=== PATIENT | male | born 1975 | race African-American/Black ===

== ENCOUNTER 2018-09-24 06:25 | Emergency (ER) | payer SELFPAY ==
--- NOTE | 2018-09-24 08:58 | ER Document Report ---
ED General - General Chief Complaint: Ear Pain Stated Complaint: LEFT EAR PAIN Time Seen by Provider: 09/24/18 08:47 Primary Care Provider: TRACY DAMICO MD [COMMUNITY BASED STAFF] - Follow up in 3-5 days Notes: Patient is a 43-year-old male that presents to the emergency department for chief complaint of left ear pain and sore throat. Patient reports he started having pain in his left ear on 2 or 3:00 yesterday afternoon, has not noticed any drainage, he has had some painful swallowing and sore throat as well. He did not take any Tylenol or Motrin to see if it would help. He denies any any fevers, chills, night sweats, nausea, vomiting, chest pain or shortness of breath or cough. No sick contacts that he is aware of. He currently rates his pain as a 4 out of 10 is a constant ache in his left ear. Past Medical History: Denies chronic medical conditions Past Surgical History: Denies surgical history Social History: Admits to smoking cigarettes daily, denies alcohol or drug use. Family History: Reviewed and noncontributory for presenting illness Allergies: Reviewed, see documented allergy list. REVIEW OF SYSTEMS: Other than noted above, the 12 point review of systems was reviewed with the patient and were negative, all pertinent findings are included in the HPI. PHYSICAL EXAMINATION: Vital signs reviewed, nursing noted reviewed. GENERAL: Well-appearing, well-nourished and in no acute distress. HEAD: Atraumatic, normocephalic. EYES: Eyes appear normal, extraocular movements intact, sclera anicteric, conjunctiva are normal. ENT: nares patent, Moist mucous membranes. The left TM appears erythematous and bulging, external auditory canals unremarkable, right TM appears normal, the posterior oropharynx is erythematous, with trace exudates as well on the left in particular NECK: Normal range of motion, supple without lymphadenopathy LUNGS: Breath sounds clear to auscultation bilaterally and equal. No wheezes rales or rhonchi. HEART: Regular rate and rhythm without murmurs ABDOMEN: Soft, nontender, normoactive bowel sounds. No rebound, guarding, or rigidity. No masses appreciated. EXTREMITIES: Nontender, good range of motion, no pitting or edema. NEUROLOGICAL: No focal neurological deficits. Moves all extremities spontaneously Motor and sensory grossly intact on exam. PSYCH: Normal mood, normal affect. SKIN: Warm, Dry, normal turgor, no rashes or lesions noted on exposed skin TRAVEL OUTSIDE OF THE [place] IN LAST 30 DAYS: No Past Medical History - Social History Smoking Status: Current Every Day Smoker Chew tobacco use (# tins/day): No Frequency of alcohol use: Occasional Drug Abuse: None Family History: Reviewed & Not Pertinent Patient has suicidal ideation: No Patient has homicidal ideation: No Renal/ Medical History: Denies: Hx Peritoneal Dialysis Physical Exam - Vital signs Vitals: Temp Pulse Resp BP Pulse Ox 99.7 F 108 H 20 178/102 H 100 09/24/18 06:33 09/24/18 06:33 09/24/18 06:33 09/24/18 06:33 09/24/18 06:33 Course - Re-evaluation Re-evalutation: Patient seen and examined vital signs reviewed. Patient was evaluated and treated as appropriate for the patient's presenting symptoms and complaint, with consideration of any critical or life threatening conditions that may be associated with their obtained history and exam as noted above. Evaluation was most consistent with acute otitis media, acute pharyngitis, will treat the patient for his otitis media, with amoxicillin, twice daily, for 10 days, advised [id number] Motrin otherwise to take for pain while treating the infection. Plan of care was discussed with the patient at this point, after careful consideration I feel that that patient can be discharged from the emergency department, the patient was educated treatments and reasons to return to the emergency department based on their presumed diagnosis as noted above, they were advised to followup with a primary care physician in 2-3 days. Patient was agreeable to plan of care. *Note is created using voice recognition software and may contain spelling, syntax or grammatical errors. - Vital Signs Vital signs: Temp Pulse Resp BP Pulse Ox 99.6 F 104 H 17 184/109 H 100 09/24/18 09:10 09/24/18 09:10 09/24/18 09:10 09/24/18 09:10 09/24/18 09:10 Discharge - Discharge Clinical Impression: Acute otitis media Qualifiers: Otitis media type: suppurative Laterality: left Recurrence: not specified as recurrent Spontaneous tympanic membrane rupture: without spontaneous rupture Qualified Code(s): H66.002 - Acute suppurative otitis media without spontaneous rupture of ear drum, left ear Acute pharyngitis Qualifiers: Pharyngitis/tonsillitis etiology: unspecified etiology Qualified Code(s): J02.9 - Acute pharyngitis, unspecified Condition: Stable Disposition: HOME, SELF-CARE Instructions: Otitis Media ([facility]), Sore Throat ([facility]) Additional Instructions: Please complete the entire course of antibiotics, you can otherwise take [id number] ibuprofen, up to 600 mg every 8 hours if needed for pain. Prescriptions: RX: Amoxicillin Trihydrate [Amoxil 875 mg Tablet] 1 tab PO BID #20 tablet Forms: Return to Work Referrals: TRACY DAMICO MD [COMMUNITY BASED STAFF] - Follow up in 3-5 days
[2018-09-24 09:13] VITALS: BP 184/109
== END 2018-09-24 09:13 | disposition home or self-care (01) ==
LOC: ER 06:25
DX: H66.002 Acute suppurative otitis media without spontaneous rupture of ear drum, left ear (principal); J02.9 Acute pharyngitis, unspecified; F17.210 Nicotine dependence, cigarettes, uncomplicated
CPT/HCPCS: 99282

== ENCOUNTER 2019-07-16 01:43 | Inpatient (IN) | payer OTHER ==
[2019-07-16 03:15] LABS: ABSOLUTE LYMPHOCYTES (AUTO) 1.1 10^3/uL (0.5-4.7); ABSOLUTE MONOCYTES (AUTO) 0.3 10^3/uL (0.1-1.4); ABSOLUTE NEUT (AUTO) 5.2 10^3/uL (1.7-8.2); BASOPHILS % (AUTO) 0.3 % (0-2); HEMATOCRIT 44.5 % (37.9-51.0); HEMOGLOBIN 15.3 g/dL (13.5-17.0); LYMPHOCYTES % (AUTO) 16.4 % (13-45); MEAN CORPUSCULAR HGB CONC 34.3 g/dL (32.0-36.0); MEAN CORPUSCULAR VOLUME 82 fl (80-97); MONOCYTES % (AUTO) 3.8 % (3-13); PLATELET COUNT 287 10^3/uL (150-450); RED BLOOD COUNT 5.46 10^6/uL (4.35-5.55); RED CELL DISTRIBUTION WIDTH 13.6 % (11.5-14.0); SEGMENTED NEUTROPHILS % (AUTO) 79.5 % (42-78); TOTAL CELLS COUNTED % (AUTO) 100 %; WHITE BLOOD COUNT 6.5 10^3/uL (4.0-10.5)
[2019-07-16 03:19] LABS: APPEARANCE,URINE CLEAR; BILIRUBIN,URINE NEGATIVE (NEGATIVE); COLOR,URINE YELLOW; GLUCOSE, URINE NEGATIVE (NEGATIVE); KETONES,URINE TRACE mg/dL (NEGATIVE); LEUKOCYTE ESTERASE,URINE NEGATIVE (NEGATIVE); NITRITE,URINE NEGATIVE (NEGATIVE); PROTEIN,URINE 30 mg/dL (NEGATIVE); URINE SPECIFIC GRAVITY 1.031; UROBILINOGEN,URINE NEGATIVE mg/dL (<2.0)
[2019-07-16 03:33] LABS: ALBUMIN 4.7 g/dL (3.5-5.0); ALKALINE PHOSPHATASE 92 U/L (38-126); ANION GAP 9 (5-19); ASPARTATE AMINO TRANSFERASE 28 U/L (17-59); BILIRUBIN,TOTAL 0.6 mg/dL (0.2-1.3); BLOOD UREA NITROGEN 13 mg/dL (7-20); CALCIUM 9.8 mg/dL (8.4-10.2); CARBON DIOXIDE 24 mmol/L (22-30); CHLORIDE 102 mmol/L (98-107); GLUCOSE 135 mg/dL (75-110); POTASSIUM 4.7 mmol/L (3.6-5.0); TOTAL PROTEIN 7.9 g/dL (6.3-8.2)
[2019-07-16] MEDS ORDERED: KETOROLAC TROMETHAMINE INJ/PF 30 MG/1 ML SDV IV ONE (04:13)
--- NOTE | 2019-07-16 05:12 | ER Document Report ---
ED General - General TRAVEL OUTSIDE OF THE [place] IN LAST 30 DAYS: No - Related Data Home Medications: no bp meds since january2019 <ALMAGUERFLORI A - Last Filed: 07/16/19 06:36> <MARKOSMASONELIZA - Last Filed: 07/16/19 07:30> - General Chief Complaint: Abdominal Pain Stated Complaint: ABDOMINAL PAIN Time Seen by Provider: 07/16/19 03:13 - HPI Notes: 43-year-old male no significant medical history presents with approximately 12 hours of gradual onset constant periumbilical abdominal pain without associated symptoms, prior episodes, aggravating or alleviating factors. Patient took Tums for pain which did not improve. Patient denies fever chills, nausea vomiting, diarrhea constipation, migration of pain, dysuria frequency flank pain, penile discharge rashes or lesions, testicular pain, prior abdominal surgery, trauma, dizziness, syncope, drug use, alcohol use, prior medical evaluation, chest pain, cardiac history, cardiac risk factors. (FLORI ALMAGUER) - Related Data Allergies/Adverse Reactions: No Known Allergies Allergy (Verified 07/16/19 01:57) Past Medical History - Social History Smoking Status: Current Every Day Smoker Family History: Reviewed & Not Pertinent Patient has suicidal ideation: No Patient has homicidal ideation: No Neurological Medical History: Reports: None Endocrine Medical History: Reports: None Renal/ Medical History: Reports: None. Denies: Hx Peritoneal Dialysis <ALMAGUERFLORI A - Last Filed: 07/16/19 06:36> Review of Systems <FLORI ALMAGUER - Last Filed: 07/16/19 06:36> - Review of Systems Notes: REVIEW OF SYSTEMS: CONSTITUTIONAL : Denies fever, chills, or sweats. EENT: Denies recent cold/sinus symptoms, denies throat pain CARDIOVASCULAR: Denies chest pain, JOSUE RESPIRATORY: Denies cough, denies shortness of breath. GASTROINTESTINAL: Endorses abdominal pain, nausea/vomiting. GENITOURINARY: Denies difficulty urinating, painful urination, and urinary frequency. MUSCULOSKELETAL: Denies neck pain, back pain. SKIN: Denies rash or skin lesions. HEMATOLOGIC : Denies easy bruising or bleeding. LYMPHATIC: Denies swollen, enlarged glands. NEUROLOGICAL: Denies headache, denies change in gait. PSYCHIATRIC: Denies anxiety or stress or depression. (FLORI ALMAGUER) Physical Exam <FLORI ALMAGUER - Last Filed: 07/16/19 06:36> - Vital signs Vitals: Temp Pulse Resp BP Pulse Ox 97.9 F 86 15 172/109 H 100 07/16/19 01:51 07/16/19 01:51 07/16/19 01:51 07/16/19 01:51 07/16/19 01:51 - Notes Notes: PHYSICAL EXAMINATION: GENERAL: Well-appearing, well-nourished and in no acute distress. HEAD: Atraumatic, normocephalic. EYES: Pupils equal round and appropriate constriction, sclera anicteric, conjunctiva are normal. ENT: nares patent, moist mucous membranes. NECK: Normal range of motion, supple without lymphadenopathy LUNGS: Breath sounds clear to auscultation bilaterally and equal. No wheezes rales or rhonchi. HEART: Regular rate and rhythm without murmurs ABDOMEN: Soft, +RLQ tenderness, no guarding, no masses, normoactive bowel sounds, no CVAT, no prior surgical scars EXTREMITIES: Normal range of motion, no pitting or edema. No cyanosis. NEUROLOGICAL: Awake, alert, conversing appropriately, moves all extremities spontaneously. PSYCH: Normal mood, normal affect. SKIN: Warm, Dry, normal turgor, no rashes or lesions noted. (FLORI ALMAGUER) Course - Laboratory Result Diagrams: 07/16/19 03:01 07/16/19 03:01 <FLORI ALMAGUER - Last Filed: 07/16/19 06:36> - Laboratory Result Diagrams: 07/16/19 03:01 07/16/19 03:01 <ELIZA MARTIN - Last Filed: 07/16/19 07:30> - Re-evaluation Re-evalutation: 07/16/19 05:27 Patient very well-appearing, positive right lower quadrant tenderness without signs of an acute surgical abdomen. Will obtain CT abdomen pelvis with IV contrast given patient's BMI to rule out appendicitis--unlikely renal colic, unlikely diverticulitis but will evaluate on CT. Patient stable pending imaging, pain control, and reevaluation. 07/16/19 06:36 Patient continues to be stable, exam unchanged. CT shows moderate grade SBO, concerning for possible underlying malignancy or internal hernia given patient's lack of prior abdominal surgery. Informed patient of finding and of need to be admitted to hospital which she is in agreement with. Called Dr. Hernandez and discussed patient with him, Dr. Hernandez says he will come see patient. Will sign patient out to Dr. gamino pending disposition. Ordered Zofran and morphine given patient continuing to have pain and possible nausea from NG tube which was also ordered. (FLORI ALMAGUER) 07/16/19 07:28 Dr. Hernandez, surgical list on-call, has come and evaluated the patient. He is unsure as to whether or not this is a true bowel obstruction, but agrees that observation is appropriate at this time. He will admit the patient for further care. (ELIZA MARTIN) - Vital Signs Vital signs: Temp Pulse Resp BP Pulse Ox 97.9 F 86 15 172/109 H 100 07/16/19 01:51 07/16/19 01:51 07/16/19 01:51 07/16/19 01:51 07/16/19 01:51 - Laboratory Laboratory results interpreted by me: 07/16/19 07/16/19 07/16/19 03:01 03:01 03:01 Seg Neutrophils % 79.5 H Sodium 134.8 L Glucose 135 H Lipase 16.2 L Urine Protein 30 H Urine Ketones TRACE H Urine Ascorbic Acid 20 H Discharge <FLORI ALMAGUER - Last Filed: 07/16/19 06:36> - Discharge Admitting Provider: Surgicalist - Dr. Hernandez Unit Admitted: Surgical Floor <ELIZA MARTIN - Last Filed: 07/16/19 07:30> - Discharge Clinical Impression: Abdominal pain Qualifiers: Abdominal location: periumbilical Qualified Code(s): R10.33 - Periumbilical pain Condition: Stable Disposition: ADMITTED OBSERVATION
--- NOTE | 2019-07-16 06:15 | RADIOLOGY REPORT (SQ) ---
EXAM DESCRIPTION: CT ABDOMEN PELVIS WITH IV CONTRAST COMPLETED DATE/TME: 07/16/2019 04:12 CLINICAL HISTORY: 43 years Male, RLQ pain Comparison: None. Technique: IV contrast. Coronal and sagittal reformat. This exam was performed according to our departmental dose-optimization program, which includes automated exposure control, adjustment of the mA and/or kV according to patient size and/or use of iterative reconstruction technique. [facility]: Dose Right [facility]: CareDose [facility]: Dose Right [facility]: Teradose 4D [facility]: [email or web address] LIMITATIONS: None Findings: Numerous stacked loops of 4.1 cm diameter small bowel indicative of moderate grade obstruction. Focal transition at the mid abdomen, image 57, series 3. Immediate Surgical referral advised. Moderate L5-S1 disc bulge. Ezer-me-uosfrlkb L5-S1 and L4-L5 spinal and bilateral L5 foraminal stenoses. Minimal pelvic cul-de-sac fluid. No pneumoperitoneum. Normal appendix. No gross evidence of gallbladder inflammation, hepatobiliary obstruction, or portal vein defect. No hydronephrosis or hydroureter. No renal/ureteral stone. No evidence of abdominal aortic aneurysm. Inferior thorax, liver, gallbladder, pancreas, spleen, adrenals, renal system, gastrointestinal tract, pelvic organs, lymphatics, vasculature, and musculoskeleton appear otherwise unremarkable. IMPRESSION: Moderate grade small bowel obstruction. Focal transition at the mid abdomen, image 57, series 3. Immediate Surgical referral advised.
[2019-07-16] MEDS ORDERED: RINGERS SOLUTION,LACTATED 1,000 ML IV PRN (06:19)
[2019-07-16] MEDS ORDERED: LIDOCAINE 2% INJ-PF (20 MG/ML) 10 ML AMPUL NEB ONE (06:26)
[2019-07-16] MEDS ORDERED: ONDANSETRON HCL INJ/PF 4 MG/2 ML SDV IV ONE (06:35)
[2019-07-16] MEDS ORDERED: MORPHINE SULFATE 10 MG/ML INJ IV STA (06:35)
[2019-07-16] MEDS ORDERED: PROMETHAZINE HCL INJ 25 MG/1 ML VIAL IV ONE (07:12)
[2019-07-16] MEDS ORDERED: PROMETHAZINE HCL INJ 25 MG/1 ML VIAL ONE (07:13)
[2019-07-16] MEDS ORDERED: ONDANSETRON HCL INJ/PF 4 MG/2 ML SDV IV PRN (07:35)
[2019-07-16] MEDS: ERYTHROMYCIN BASE 250 MG TABLET PO SCH ×3 (10:00→18:27)
[2019-07-16] MEDS: FAMOTIDINE INJ/PF 20 MG/2 ML SDV IV SCH ×2 (10:00→18:00)
[2019-07-16] MEDS: DEXTROSE 5%-LACTATED RINGERS 1,000 ML IV PRN ×2 (15:00→23:48)
[2019-07-16] MEDS: ENALAPRILAT DIHYDRATE INJ/PF 1.25 MG/1 ML SDV IV SCH ×2 (18:00→23:48)
[2019-07-16] MEDS: HYDRALAZINE HCL INJ/PF 20 MG/1 ML SDV IV PRN (20:10)
[2019-07-17] MEDS: KETOROLAC TROMETHAMINE INJ/PF 30 MG/1 ML SDV IV PRN ×3 (01:40→18:00)
[2019-07-17] MEDS: ENALAPRILAT DIHYDRATE INJ/PF 1.25 MG/1 ML SDV IV SCH ×3 (05:49→18:26)
[2019-07-17 06:03] LABS: ABSOLUTE LYMPHOCYTES (AUTO) 1.3 10^3/uL (0.5-4.7); ABSOLUTE MONOCYTES (AUTO) 0.4 10^3/uL (0.1-1.4); ABSOLUTE NEUT (AUTO) 2.2 10^3/uL (1.7-8.2); BASOPHILS % (AUTO) 0.5 % (0-2); EOSINOPHILS % (AUTO) 0.1 % (0-6); HEMOGLOBIN 14.5 g/dL (13.5-17.0); LYMPHOCYTES % (AUTO) 33.2 % (13-45); MEAN CORPUSCULAR HEMOGLOBIN 27.9 pg (27.0-33.4); MEAN CORPUSCULAR HGB CONC 34.4 g/dL (32.0-36.0); MEAN CORPUSCULAR VOLUME 81 fl (80-97); MONOCYTES % (AUTO) 10.9 % (3-13); PLATELET COUNT 252 10^3/uL (150-450); RED BLOOD COUNT 5.18 10^6/uL (4.35-5.55); RED CELL DISTRIBUTION WIDTH 13.8 % (11.5-14.0); SEGMENTED NEUTROPHILS % (AUTO) 55.3 % (42-78); TOTAL CELLS COUNTED % (AUTO) 100 %
[2019-07-17 06:27] LABS: ANION GAP 5 (5-19); BLOOD UREA NITROGEN 12 mg/dL (7-20); CALCIUM 8.9 mg/dL (8.4-10.2); CARBON DIOXIDE 29 mmol/L (22-30); CHLORIDE 101 mmol/L (98-107); GLUCOSE 125 mg/dL (75-110); POTASSIUM 4.1 mmol/L (3.6-5.0)
[2019-07-17] MEDS: DEXTROSE 5%-LACTATED RINGERS 1,000 ML IV PRN (06:31)
--- NOTE | 2019-07-17 07:25 | PDOC H&P ---
History of Present Illness Admission Date/PCP: 07/16/19 07:44 Patient complains of: Burning abdominal pain, nausea History of Present Illness: TEJ AMARAL is a 43 year old male who awoke in the middle of the night with burning abdominal pain. The pain did not go away, and he presented to the emergency room for evaluation. The patient reports nausea without vomiting. His abdominal pain is 8 out of 10. It is located all across his abdomen, without a specific point of tenderness. Nothing makes it better or worse. He denies melena, hematochezia, diarrhea, constipation. His last bowel movement was yesterday. He passed flatus before presenting to the emergency department. The patient denies chest pain, shortness of breath, fevers, chills, dizziness, blurry vision, orthostasis, fatigue, malaise, headache. Past Medical History Cardiac Medical History: Reports: Hypertension Neurological Medical History: Reports: None Endocrine Medical History: Reports: None Renal/ Medical History: Reports: None Psychiatric Medical History: Denies: Depression Social History Smoking Status: Current Every Day Smoker Cigars Per Day: 8 Number of Years Smokin Last Time Smoked: 07/15/2019 Frequency of Alcohol Use: Occasional Hx Prescription Drug Abuse: No Family History Family History: Reviewed & Not Pertinent Parental Family History Reviewed: Yes Children Family History Reviewed: Yes Sibling(s) Family History Reviewed.: Yes Medication/Allergy Home Medications: No Home Medications 07/16/19 Allergies/Adverse Reactions: No Known Allergies Allergy (Verified 07/16/19 01:57) Review of Systems Constitutional: ABSENT: anorexia, chills, fatigue, fever(s) Eyes: ABSENT: visual disturbances Ears: ABSENT: hearing changes Nose, Mouth, and Throat: ABSENT: mouth pain, sore throat Cardiovascular: ABSENT: chest pain Respiratory: ABSENT: cough, dyspnea Gastrointestinal: PRESENT: abdominal pain, nausea. ABSENT: hematemesis, hematochezia, melena, vomiting Genitourinary: ABSENT: dysuria Musculoskeletal: ABSENT: back pain Integumentary: ABSENT: pruritus, rash Neurological: ABSENT: confusion, convulsions, dizziness Psychiatric: ABSENT: anxiety, depression Endocrine: ABSENT: cold intolerance, heat intolerance Hematologic/Lymphatic: ABSENT: easy bleeding, easy bruising Physical Exam Vital Signs: Temp Pulse Resp BP Pulse Ox 98.2 F 78 16 174/78 H 100 07/16/19 15:55 07/16/19 18:00 07/16/19 15:55 07/16/19 18:00 07/16/19 15:55 Intake & Output 07/15/19 07/16/19 07/17/19 06:59 06:59 06:59 Intake Total 1440 Balance 1440 Weight 77.4 kg 78 kg General appearance: PRESENT: no acute distress Head exam: PRESENT: atraumatic, normocephalic Eye exam: PRESENT: EOMI, PERRLA. ABSENT: scleral icterus Mouth exam: PRESENT: moist, neck supple Neck exam: ABSENT: meningismus, tenderness, thyromegaly, tracheal deviation Respiratory exam: PRESENT: unlabored. ABSENT: chest wall tenderness, tachypnea Cardiovascular exam: ABSENT: tachycardia Pulses: PRESENT: normal radial pulses GI/Abdominal exam: PRESENT: soft, tenderness - minimal. ABSENT: distended Rectal exam: PRESENT: deferred Extremities exam: ABSENT: clubbing Musculoskeletal exam: ABSENT: deformity Neurological exam: PRESENT: alert, awake, oriented to person, oriented to place, oriented to time, oriented to situation, CN II-XII grossly intact Psychiatric exam: ABSENT: agitated, anxious, depressed Focused psych exam: ABSENT: delusional Skin exam: ABSENT: cyanosis, erythema, jaundice Results Laboratory Results: 07/16/19 03:01 07/16/19 03:01 07/16/19 07/16/19 07/16/19 03:01 03:01 03:01 WBC 6.5 RBC 5.46 Hgb 15.3 Hct 44.5 MCV 82 MCH 28.0 MCHC 34.3 RDW 13.6 Plt Count 287 Seg Neutrophils % 79.5 H Sodium 134.8 L Potassium 4.7 Chloride 102 Carbon Dioxide 24 Anion Gap 9 BUN 13 Creatinine 0.65 Est GFR ( Amer) > 60 Glucose 135 H Calcium 9.8 Total Bilirubin 0.6 AST 28 Alkaline Phosphatase 92 Total Protein 7.9 Albumin 4.7 Lipase 16.2 L Urine Color YELLOW Urine Appearance CLEAR Urine pH 5.0 Ur Specific [place] 1.031 Urine Protein 30 H Urine Glucose (UA) NEGATIVE Urine Ketones TRACE H Urine Blood NEGATIVE Urine Nitrite NEGATIVE Ur Leukocyte Esterase NEGATIVE Urine WBC (Auto) 1 Urine RBC (Auto) 3 Impressions: Abdomen/Pelvis CT 07/16/19 04:12 IMPRESSION: Moderate grade small bowel obstruction. Focal transition at the mid abdomen, image 57, series 3. Immediate Surgical referral advised. Assessment & Plan - Diagnosis (1) Abdominal pain Qualifiers: Abdominal location: unspecified location Qualified Code(s): R10.9 - Unspec ified abdominal pain Is this a current diagnosis for this admission?: Yes - Plan Summary Plan Summary: This is a 43-year-old male with abdominal pain. He has CT scan, which I have reviewed. The patient has thickening of the mid jejunum, with a small amount of dilation of the small intestine. The radiologist has suggested the presence of a small bowel obstruction, however I am not entirely convinced based on the patient's clinical appearance. He has no hernia or history of intra-abdominal surgery. This makes a small bowel obstruction much less likely. The patient has an NG tube, that was placed in the ER. I will continue with this. I will treat the patient symptomatically with IV hydration and pain medications. I feel it is very likely that he is experiencing gastroenteritis. Repeat x-rays tomorrow. Further recommendations and treatments will be based on the patient's clinical course.
--- NOTE | 2019-07-17 08:30 | RADIOLOGY REPORT (SQ) ---
EXAM DESCRIPTION: KUB/ABDOMEN (SINGLE VIEW) IMAGES COMPLETED DATE/TIME: 07/17/2019 7:56 am REASON FOR STUDY: abdominal pain COMPARISON: CT dated 07/16/2019. NUMBER OF VIEWS: One view. TECHNIQUE: Supine radiographic image of the abdomen acquired. LIMITATIONS: None. FINDINGS: BOWEL GAS PATTERN: Diffuse small bowel dilation. CALCIFICATIONS: No suspicious calcifications. SOFT TISSUES: No gross mass or suggestion of organomegaly. HARDWARE: Nasogastric tube, tip in the stomach. BONES: No acute fracture. No worrisome bone lesions. OTHER: No other significant finding. IMPRESSION: DIFFUSE SMALL BOWEL DILATION. NASOGASTRIC TUBE WITH THE TIP IN THE STOMACH. TECHNICAL DOCUMENTATION: JOB ID: [id number] 2010 [employer]- All Rights Reserved Reading location - IP/workstation name: [email or web address]
[2019-07-17] MEDS: ERYTHROMYCIN BASE 250 MG TABLET PO SCH ×3 (09:23→18:26)
[2019-07-17] MEDS: FAMOTIDINE INJ/PF 20 MG/2 ML SDV IV SCH ×2 (09:23→18:00)
[2019-07-17] MEDS: POTASSI CL 20 MEQ/D5NS 1L 20 MEQ/1,000 ML RTUINJ IV PRN ×2 (09:40→18:32)
--- NOTE | 2019-07-17 09:55 | PDOC PROGRESS REPORT ---
Subjective Progress Note for:: 07/17/19 Subjective:: 43-year-old male with abdominal pain. He still complains of pain, requiring pain medication. He denies any flatus overnight. He does not report abdominal distention, melena, hematochezia, hematemesis, chest pain, shortness of breath, headache, dizziness, orthostasis. Reason For Visit: ABDOMINAL PAIN,NAUSEA Physical Exam Vital Signs: Temp Pulse Resp BP Pulse Ox 98.4 F 85 17 156/91 H 99 07/17/19 08:00 07/17/19 08:00 07/17/19 08:00 07/17/19 08:00 07/17/19 08:00 Intake & Output 07/16/19 07/17/19 07/18/19 06:59 06:59 06:59 Intake Total 3440 453 Balance 3440 453 Weight 77.4 kg 78 kg General appearance: PRESENT: no acute distress, cooperative Head exam: PRESENT: atraumatic, normocephalic Eye exam: PRESENT: EOMI, PERRLA Mouth exam: PRESENT: moist, neck supple Neck exam: ABSENT: meningismus, tenderness, thyromegaly, tracheal deviation Respiratory exam: PRESENT: unlabored. ABSENT: chest wall tenderness, tachypnea, wheezes Cardiovascular exam: ABSENT: tachycardia Pulses: PRESENT: normal radial pulses GI/Abdominal exam: PRESENT: soft, tenderness - mild tenderness. ABSENT: distended, firm, rebound, rigid Rectal exam: PRESENT: deferred Extremities exam: ABSENT: clubbing Musculoskeletal exam: ABSENT: deformity Neurological exam: PRESENT: alert, awake, oriented to person, oriented to place, oriented to time, oriented to situation, CN II-XII grossly intact Psychiatric exam: ABSENT: agitated, anxious Focused psych exam: ABSENT: delusional Skin exam: ABSENT: cyanosis, erythema, jaundice Results Laboratory Results: 07/17/19 05:40 07/17/19 05:40 07/17/19 07/17/19 05:40 05:40 WBC 4.0 RBC 5.18 Hgb 14.5 Hct 42.0 MCV 81 MCH 27.9 MCHC 34.4 RDW 13.8 Plt Count 252 Seg Neutrophils % 55.3 Sodium 134.6 L Potassium 4.1 Chloride 101 Carbon Dioxide 29 Anion Gap 5 BUN 12 Creatinine 0.80 Est GFR ( Amer) > 60 Glucose 125 H Calcium 8.9 Impressions: Abdomen/Pelvis CT 07/16/19 04:12 IMPRESSION: Moderate grade small bowel obstruction. Focal transition at the mid abdomen, image 57, series 3. Immediate Surgical referral advised. KUB X-Ray 07/17/19 06:00 IMPRESSION: DIFFUSE SMALL BOWEL DILATION. NASOGASTRIC TUBE WITH THE TIP IN THE STOMACH. Assessment & Plan - Diagnosis (1) Abdominal pain Qualifiers: Abdominal location: unspecified location Qualified Code(s): R10.9 - Unspecified abdominal pain Is this a current diagnosis for this admission?: Yes - Plan Summary Plan Summary: This is a 43-year-old male with abdominal pain. Differential includes gastroenteritis versus small bowel obstruction. The patient continues to have dilation of his small bowel on x-ray. He does not report any flatus. His NG tube is minimally productive. Continue with IV fluids. Continue with IV pain meds. Recheck x-rays tomorrow. If the patients symptoms persist, he may require exploratory surgery to ascertain the cause of his abdominal complaints. Further treatments and recommendations will be made depending on the patient's clinical course.
[2019-07-18] MEDS: MORPHINE SULFATE 10 MG/ML INJ IV PRN ×2 (00:09→21:09)
[2019-07-18] MEDS: ENALAPRILAT DIHYDRATE INJ/PF 1.25 MG/1 ML SDV IV SCH ×5 (00:10→23:58)
[2019-07-18] MEDS: POTASSI CL 20 MEQ/D5NS 1L 20 MEQ/1,000 ML RTUINJ IV PRN ×3 (02:51→23:04)
[2019-07-18] MEDS: HYDRALAZINE HCL INJ/PF 20 MG/1 ML SDV IV PRN (09:33)
--- NOTE | 2019-07-18 09:33 | PDOC PROGRESS REPORT ---
Subjective Progress Note for:: 07/18/19 Subjective:: 43-year-old male with abdominal pain. He reports lessening pain today. He now reports flatus overnight. He does not report abdominal distention, melena, hematochezia, hematemesis, chest pain, shortness of breath, headache, dizziness, orthostasis. His NG tube "fell out" earlier today. Reason For Visit: ABDOMINAL PAIN,NAUSEA Physical Exam Vital Signs: Temp Pulse Resp BP Pulse Ox 98.5 F 91 16 185/101 H 99 07/18/19 07:10 07/18/19 07:10 07/18/19 07:10 07/18/19 07:10 07/18/19 07:10 Intake & Output 07/17/19 07/18/19 07/19/19 06:59 06:59 06:59 Intake Total 3440 2473 Output Total 650 Balance 3440 1823 Weight 78 kg 79 kg Exam: General appearance: PRESENT: no acute distress, cooperative Head exam: PRESENT: atraumatic, normocephalic Eye exam: PRESENT: EOMI, PERRLA Mouth exam: PRESENT: moist, neck supple Neck exam: ABSENT: meningismus, tenderness, thyromegaly, tracheal deviation Respiratory exam: PRESENT: unlabored. ABSENT: chest wall tenderness, tachypnea, wheezes Cardiovascular exam: ABSENT: tachycardia Pulses: PRESENT: normal radial pulses GI/Abdominal exam: PRESENT: soft, tenderness - mild tenderness. ABSENT: distended, firm, rebound, rigid Rectal exam: PRESENT: deferred Extremities exam: ABSENT: clubbing Musculoskeletal exam: ABSENT: deformity Neurological exam: PRESENT: alert, awake, oriented to person, oriented to place, oriented to time, oriented to situation, CN II-XII grossly intact Psychiatric exam: ABSENT: agitated, anxious Focused psych exam: ABSENT: delusional Skin exam: ABSENT: cyanosis, erythema, jaundice Results Laboratory Results: 07/17/19 05:40 07/17/19 05:40 Impressions: Abdomen/Pelvis CT 07/16/19 04:12 IMPRESSION: Moderate grade small bowel obstruction. Focal transition at the mid abdomen, image 57, series 3. Immediate Surgical referral advised. KUB X-Ray 07/17/19 06:00 IMPRESSION: DIFFUSE SMALL BOWEL DILATION. NASOGASTRIC TUBE WITH THE TIP IN THE STOMACH. Assessment & Plan - Diagnosis (1) Abdominal pain Qualifiers: Abdominal location: unspecified location Qualified Code(s): R10.9 - Unspecified abdominal pain Is this a current diagnosis for this admission?: Yes - Plan Summary Plan Summary: This is a 43-year-old male with abdominal pain. Differential includes gastroe nteritis versus small bowel obstruction. The patient continues to have dilation of his small bowel on x-ray. He does report flatus overnight. His NG tube fell out this morning. I will leave it out for now. Continue with IV fluids. OK for ice chips. Continue with IV pain meds. Recheck x-rays today. If the patients symptoms persist, he may require exploratory surgery to ascertain the cause of his abdominal complaints. Further treatments and recommendations will be made depending on the patient's clinical course.
--- NOTE | 2019-07-18 09:48 | RADIOLOGY REPORT (SQ) ---
EXAM DESCRIPTION: KUB/ABDOMEN (SINGLE VIEW) IMAGES COMPLETED DATE/TIME: 07/18/2019 9:39 am REASON FOR STUDY: sbo COMPARISON: 07/17/2019. NUMBER OF VIEWS: One view. TECHNIQUE: Supine radiographic image of the abdomen acquired. LIMITATIONS: None. FINDINGS: BOWEL GAS PATTERN: Continued diffuse small bowel dilation. CALCIFICATIONS: No suspicious calcifications. SOFT TISSUES: No gross mass or suggestion of organomegaly. HARDWARE: Nasogastric tube is no longer present. BONES: No acute fracture. No worrisome bone lesions. OTHER: No other significant finding. IMPRESSION: CONTINUED DIFFUSE SMALL BOWEL DILATION. NO SIGNIFICANT CHANGE. TECHNICAL DOCUMENTATION: JOB ID: [id number] 2010 [employer]- All Rights Reserved Reading location - IP/workstation name: [email or web address]
[2019-07-18] MEDS: FAMOTIDINE INJ/PF 20 MG/2 ML SDV IV SCH ×2 (11:27→17:40)
[2019-07-18] MEDS: ERYTHROMYCIN BASE 250 MG TABLET PO SCH ×4 (11:27→17:39)
[2019-07-18] MEDS: KETOROLAC TROMETHAMINE INJ/PF 30 MG/1 ML SDV IV PRN (16:27)
[2019-07-19] MEDS: ENALAPRILAT DIHYDRATE INJ/PF 1.25 MG/1 ML SDV IV SCH ×4 (05:03→23:55)
[2019-07-19 06:02] LABS: ANION GAP 5 (5-19); BLOOD UREA NITROGEN 11 mg/dL (7-20); CALCIUM 8.5 mg/dL (8.4-10.2); CARBON DIOXIDE 24 mmol/L (22-30); CHLORIDE 104 mmol/L (98-107); GLUCOSE 115 mg/dL (75-110); POTASSIUM 4.6 mmol/L (3.6-5.0)
[2019-07-19] MEDS: POTASSI CL 20 MEQ/D5NS 1L 20 MEQ/1,000 ML RTUINJ IV PRN ×2 (07:37→17:26)
[2019-07-19] MEDS: HYDRALAZINE HCL INJ/PF 20 MG/1 ML SDV IV PRN (07:38)
[2019-07-19] MEDS: KETOROLAC TROMETHAMINE INJ/PF 30 MG/1 ML SDV IV PRN ×2 (08:00→17:27)
--- NOTE | 2019-07-19 09:41 | PDOC PROGRESS REPORT ---
Subjective Progress Note for:: 07/19/19 Subjective:: 43-year-old male with abdominal pain admitted for possible SBO. He reports no pain today. He reports passing a small amount of flatus yesterday and overnight. He denies abdominal distention, melena, hematochezia, hematemesis, chest pain, shortness of breath, headache, dizziness, orthostasis. His NG tube "fell out" yesterday, without an increase in abdominal pain, distention, nausea, or vomiting. Reason For Visit: SMALL BOWEL OBSTRUCTION Physical Exam Vital Signs: Temp Pulse Resp BP Pulse Ox 99.1 F 90 18 181/99 H 99 07/19/19 08:00 07/19/19 08:00 07/19/19 08:00 07/19/19 08:00 07/19/19 08:00 Intake & Output 07/18/19 07/19/19 07/20/19 06:59 06:59 06:59 Intake Total 2473 1999 1000 Output Total 650 Balance 1823 1999 1000 Weight 79 kg 80.4 kg General appearance: PRESENT: no acute distress, cooperative Head exam: PRESENT: atraumatic, normocephalic Eye exam: PRESENT: EOMI, PERRLA. ABSENT: scleral icterus Mouth exam: PRESENT: moist, neck supple Teeth exam: ABSENT: poor dentation Neck exam: ABSENT: meningismus, tenderness, thyromegaly, tracheal deviation Respiratory exam: PRESENT: unlabored. ABSENT: chest wall tenderness, tachypnea, wheezes Cardiovascular exam: ABSENT: tachycardia Pulses: PRESENT: normal radial pulses GI/Abdominal exam: PRESENT: soft. ABSENT: distended, rebound, rigid, tenderness Rectal exam: PRESENT: deferred Extremities exam: ABSENT: clubbing Musculoskeletal exam: ABSENT: deformity Neurological exam: PRESENT: alert, awake, oriented to person, oriented to place, oriented to time, oriented to situation, CN II-XII grossly intact Psychiatric exam: ABSENT: agitated, anxious, depressed Focused psych exam: ABSENT: delusional Skin exam: ABSENT: cyanosis, erythema, jaundice Results Laboratory Results: 07/17/19 05:40 07/19/19 04:54 07/19/19 04:54 Sodium 132.8 L Potassium 4.6 Chloride 104 Carbon Dioxide 24 Anion Gap 5 BUN 11 Creatinine 0.70 Est GFR ( Amer) > 60 Glucose 115 H Calcium 8.5 Impressions: Abdomen/Pelvis CT 07/16/19 04:12 IMPRESSION: Moderate grade small bowel obstruction. Focal transition at the mid abdomen, image 57, series 3. Immediate Surgical referral advised. KUB X-Ray 07/18/19 09:14 IMPRESSION: CONTINUED DIFFUSE SMALL BOWEL DILATION. NO SIGNIFICANT CHANGE. Assessment & Plan - Diagnosis (1) Abdominal pain Qualifiers: Abdominal location: unspecified location Qualified Code(s): R10.9 - Unspecified abdominal pain Is this a current diagnosis for this admission?: Yes - Plan Summary Plan Summary: This is a 43-year-old male with abdominal pain. Differential includes gastroenteritis versus small bowel obstruction. The patient continues to have dilation of his small bowel on x-ray, yesterday. His NG tube fell out yesterday. He reports a decrease in pain and distention. He also denies nausea, or vomiting. He still reports a "small amount" of flatus yesterday and overnight. He has not had a significant bowel movement. Continue with IV fluids. OK for ice chips. Clinically, the patient appears to be improving. I am concerned with the appearance of his abdominal x-ray yesterday, coupled with the fact that he is not having bowel movements or passing large amounts of flatus. I will order a small bowel series today, to identify any possible strictures or areas of narrowing. If the imaging demonstrates a stricture, he may require surgical intervention. Further treatments and recommendations will be made depending on the patient's clinical course.
[2019-07-19] MEDS: FAMOTIDINE INJ/PF 20 MG/2 ML SDV IV SCH ×2 (11:12→17:27)
[2019-07-19] MEDS: ERYTHROMYCIN BASE 250 MG TABLET PO SCH ×3 (11:12→17:41)
[2019-07-19] MEDS: MORPHINE SULFATE 10 MG/ML INJ IV PRN ×2 (11:22→18:26)
[2019-07-19] MEDS ORDERED: MORPHINE SULFATE 10 MG/ML INJ ONE (14:31)
[2019-07-19] MEDS ORDERED: MORPHINE SULFATE 10 MG/ML INJ IV ONE (15:00)
--- NOTE | 2019-07-19 20:34 | RADIOLOGY REPORT (SQ) ---
EXAM DESCRIPTION: Small bowel series CLINICAL HISTORY: 43 years Male; partial SBO; COMPARISON: CT 07/16/2019 FINDINGS: Small bowel series was performed with oral contrast. No fluoroscopy was performed. Collar Fuser: Multiple mild moderately distended air-filled bowel loops Immediate: Contrast in the stomach, duodenum, and proximal jejunum. One hour: Contrast in the stomach, duodenum, and much of proximal small bowel, including the moderately distended segments. 3.5 hours: Contrast in the stomach and majority of the small bowel. In the central abdomen, there is a narrowed segment of small bowel, possibly a transition point. Contrast is not seen in the distal small bowel beyond this. 8 hour: Scattered contrast in the small bowel, although not visualized beyond the 3.5 hour image. There is some gas in the distal bowel in the right abdomen. IMPRESSION: Delayed transit, consistent with small bowel obstruction. On the 3.5 hour image, there is a small bowel tapering in the central abdomen suspicious for transition point, in the ileum.
[2019-07-19] MEDS ORDERED: PHARMACY COMMUNICATION ORDER MC NR (20:45)
--- NOTE | 2019-07-19 23:47 | RADIOLOGY REPORT (SQ) ---
CLINICAL INDICATION: NG tube placement. TECHNIQUE: Single image(s) of the abdomen. 2100 COMPARISON: None. FINDINGS: Imaging centered on the diaphragm. Nasogastric tube tip and sidehole projects over the stomach, satisfactory. Residual contrast within the bowel. Small bowel dilatation. Visualized bones are unremarkable. IMPRESSION: Satisfactory placement of nasogastric tube.
[2019-07-20] MEDS: POTASSI CL 20 MEQ/D5NS 1L 20 MEQ/1,000 ML RTUINJ IV PRN ×2 (01:10→16:18)
[2019-07-20] MEDS: KETOROLAC TROMETHAMINE INJ/PF 30 MG/1 ML SDV IV PRN ×2 (03:46→23:02)
[2019-07-20] MEDS: ENALAPRILAT DIHYDRATE INJ/PF 1.25 MG/1 ML SDV IV SCH ×3 (06:05→17:52)
[2019-07-20] MEDS: HYDRALAZINE HCL INJ/PF 20 MG/1 ML SDV IV PRN ×3 (08:20→23:04)
[2019-07-20] MEDS: FAMOTIDINE INJ/PF 20 MG/2 ML SDV IV SCH ×2 (10:16→17:52)
[2019-07-20] MEDS: ERYTHROMYCIN BASE 250 MG TABLET PO SCH (10:16)
[2019-07-20] MEDS ORDERED: NEOSTIGMINE METHYLSULFATE 10 MG/10 ML VIAL ONE (10:43)
[2019-07-20] MEDS ORDERED: PHENYLEPHRINE HCL INJ/PF 10 MG/1 ML SDV ONE (10:43)
[2019-07-20] MEDS ORDERED: GLYCOPYRROLATE 1 MG/5 ML VIAL ONE (10:43)
[2019-07-20] MEDS ORDERED: FENTANYL CITRATE INJ/PF 100 MCG/2 ML AMPUL ONE (11:53)
[2019-07-20] MEDS ORDERED: DEXAMETHASONE SOD PHOSPHATE INJ 4 MG/1 ML VIAL ONE (11:53)
[2019-07-20] MEDS ORDERED: ONDANSETRON HCL INJ/PF 4 MG/2 ML SDV ONE (11:53)
[2019-07-20] MEDS ORDERED: PROPOFOL INJ 200 MG/20 ML VIAL IV ONE (11:53)
[2019-07-20] MEDS ORDERED: MIDAZOLAM 2 MG/2 ML INJ ONE (11:53)
[2019-07-20] MEDS ORDERED: HYDROMORPHONE HCL INJ/PF 2 MG/ML AMPULE ONE (11:53)
[2019-07-20] MEDS ORDERED: LIDOCAINE 2% INJ-PF (20 MG/ML) 10 ML AMPUL ONE (11:53)
[2019-07-20] MEDS ORDERED: CEFAZOLIN INJ 1 GM VIAL ONE (12:36)
[2019-07-20] MEDS ORDERED: PROMETHAZINE HCL INJ 25 MG/1 ML VIAL IV PRN ×2 (12:53)
[2019-07-20] MEDS ORDERED: FENTANYL CITRATE INJ/PF 100 MCG/2 ML AMPUL IV PRN ×3 (12:53)
[2019-07-20] MEDS ORDERED: OXYCODONE-ACETAMINOPHEN 5-325 MG TABLET PO PRN ×2 (12:53)
[2019-07-20] MEDS ORDERED: MEPERIDINE HCL/PF INJ 25 MG/1 ML DISP.SYRIN IV PRN (12:53)
[2019-07-20] MEDS ORDERED: MORPHINE SULFATE 10 MG/ML INJ IV PRN (12:53)
[2019-07-20] MEDS ORDERED: DIPHENHYDRAMINE HCL 50 MG/ML VIAL IV PRN (12:53)
--- NOTE | 2019-07-20 13:41 | Operative Report ---
Nonrecallable Operative Report DATE OF SURGERY: 07/20/19 PREOPERATIVE DIAGNOSIS: Small bowel obstruction POSTOPERATIVE DIAGNOSIS: Small bowel obstruction OPERATION: Diagnostic laparoscopy lysis of adhesions SURGEON: SUAD REAGAN ANESTHESIA: GA TISSUE REMOVED OR ALTERED: None COMPLICATIONS: None ESTIMATED BLOOD LOSS: 0 INTRAOPERATIVE FINDINGS: Omental band at the distal ileum PROCEDURE: Patient was brought to the operating awake alert in stable condition placed in the operative table supine position after being intubated in the negative pressure room as per Covid d protocol. After appropriate prepped and draped in appropriate timeout a varies needle was placed into the left upper quadrant at Norton's point The abdomen insufflated with 6 L of CO2 gas And then a supraumbilical 10 mm incision was made with a 15 blade and a 10 mm port placed in the abdominal cavity intra-abdominal visualization revealed no evidence of Veress needle or trocar injury there are multiple dilated loops of small bowel. We then placed the patient in Trendelenburg and was able to identify the pelvis I identified the cecum and then identified the terminal ileum we then began running the terminal ileum back from the cecum which appeared to be decompressed until we reached a band right across the terminal ileum of omentum that was really fixed to the mesentery of the small bowel both sides that was compressing the terminal ileum I released that with the LigaSure device and will probably see that the fluid immediately began draining into the decompressed small bowel. I then ran the small bowel the rest the way identified no evidence of a Meckel's diverticulum we identified the appendix that appeared to be normal as was the right colon which was decompressed transverse colon and descending colon I then placed the patient in a reverse Trendelenburg position and identified the ligament of Treitz and ran up small bowel which was dilated back from the ligament of Treitz to about the distal jejunum where I had previously run a backwards from the terminal ileum. There is no further evidence of obstruction or evidence of any other pathology. At this point identified no further pathology reduce the pneumoperitoneum we closed the umbilical fascial defect with 0 Vicryl in the fascia and then closed all skin incisions with 4-0 Biosyn Steri-Strips completed the procedure estimated blood loss was negligible sponge needle counts were correct x2 patient was then transferred out of the operating room back to the negative pressure room for extubation.
[2019-07-21] MEDS: ENALAPRILAT DIHYDRATE INJ/PF 1.25 MG/1 ML SDV IV SCH ×4 (00:08→18:02)
[2019-07-21] MEDS: POTASSI CL 20 MEQ/D5NS 1L 20 MEQ/1,000 ML RTUINJ IV PRN ×2 (02:01→11:09)
[2019-07-21] MEDS: FAMOTIDINE INJ/PF 20 MG/2 ML SDV IV SCH ×2 (10:47→22:30)
--- NOTE | 2019-07-21 17:40 | PDOC PROGRESS REPORT ---
Subjective Progress Note for:: 07/21/19 Subjective:: less pains Admits to passing flatus today. Reason For Visit: SMALL BOWEL OBSTRUCTION Physical Exam Vital Signs: Temp Pulse Resp BP Pulse Ox 98.9 F 94 18 186/90 H 100 07/21/19 16:00 07/21/19 16:00 07/21/19 16:00 07/21/19 16:00 07/21/19 16:00 Intake & Output 07/20/19 07/21/19 07/22/19 06:59 06:59 06:59 Intake Total 3057 3164 1030 Output Total 1200 1180 Balance 1857 1984 1030 Weight 84.1 kg 81 kg Exam: Abdomen is soft with mild distention with minimal tenderness along the incision site. NG tube not much drainage. Results Laboratory Results: 07/17/19 05:40 07/19/19 04:54 Impressions: Abdomen/Pelvis CT 07/16/19 04:12 IMPRESSION: Moderate grade small bowel obstruction. Focal transition at the mid abdomen, image 57, series 3. Immediate Surgical referral advised. KUB X-Ray 07/19/19 00:00 IMPRESSION: Satisfactory placement of nasogastric tube. Small Bowel X-Ray 07/19/19 09:28 IMPRESSION: Delayed transit, consistent with small bowel obstruction. On the 3.5 hour image, there is a small bowel tapering in the central abdomen suspicious for transition point, in the ileum. Assessment & Plan - Time Critical Time spent with patient: 15-24 minutes - Inpatient Certification Medical Necessity: Need For IV Fluids - Plan Summary Plan Summary: Postop day #1 for laparoscopic Lysis of adhesion at the ileal side Plans: Continue NG tube and n.p.o. except for ice chips DC the NG tube tomorrow if continues to pass flatus and feels a lot better.
[2019-07-21] MEDS: HYDRALAZINE HCL INJ/PF 20 MG/1 ML SDV IV PRN (22:29)
[2019-07-21] MEDS: MORPHINE SULFATE 10 MG/ML INJ IV PRN (22:43)
[2019-07-22] MEDS: ENALAPRILAT DIHYDRATE INJ/PF 1.25 MG/1 ML SDV IV SCH ×4 (00:59→19:10)
[2019-07-22] MEDS: POTASSI CL 20 MEQ/D5NS 1L 20 MEQ/1,000 ML RTUINJ IV PRN ×3 (01:02→20:56)
[2019-07-22] MEDS: FAMOTIDINE INJ/PF 20 MG/2 ML SDV IV SCH ×2 (09:47→22:56)
--- NOTE | 2019-07-22 10:41 | PDOC PROGRESS REPORT ---
Subjective Progress Note for:: 07/22/19 Subjective:: Has flatus. Hungry Reason For Visit: SMALL BOWEL OBSTRUCTION Physical Exam Vital Signs: Temp Pulse Resp BP Pulse Ox 98.1 F 71 17 158/80 H 99 07/22/19 08:00 07/22/19 08:00 07/22/19 08:00 07/22/19 08:00 07/22/19 08:00 Intake & Output 07/21/19 07/22/19 07/23/19 06:59 06:59 06:59 Intake Total 3164 2212 1000 Output Total 1180 1150 Balance 1984 1062 1000 Weight 81 kg 83.9 kg Exam: Abdomen is soft with minimal tenderness along incision sites. Results Laboratory Results: 07/17/19 05:40 07/19/19 04:54 Impressions: Abdomen/Pelvis CT 07/16/19 04:12 IMPRESSION: Moderate grade small bowel obstruction. Focal transition at the mid abdomen, image 57, series 3. Immediate Surgical referral advised. KUB X-Ray 07/19/19 00:00 IMPRESSION: Satisfactory placement of nasogastric tube. Small Bowel X-Ray 07/19/19 09:28 IMPRESSION: Delayed transit, consistent with small bowel obstruction. On the 3.5 hour image, there is a small bowel tapering in the central abdomen suspicious for transition point, in the ileum. Assessment & Plan - Time Critical Time spent with patient: 15-24 minutes - Inpatient Certification Medical Necessity: Need For IV Fluids - Plan Summary Plan Summary: Postop day #1 post laparoscopic release of small bowel obstruction due to an adhesive band patient is doing well and passing flatus. Plans: DC NG tube and start clear liquids today. Will increase diet as tolerated Anticipate discharge in next 24 to 48 hours
[2019-07-22] MEDS: HYDRALAZINE HCL INJ/PF 20 MG/1 ML SDV IV PRN (21:00)
[2019-07-23] MEDS: ENALAPRILAT DIHYDRATE INJ/PF 1.25 MG/1 ML SDV IV SCH ×2 (00:11→06:05)
[2019-07-23] MEDS: POTASSI CL 20 MEQ/D5NS 1L 20 MEQ/1,000 ML RTUINJ IV PRN (06:05)
[2019-07-23] MEDS: FAMOTIDINE INJ/PF 20 MG/2 ML SDV IV SCH (09:30)
[2019-07-23 09:41] VITALS: BP 140/85
--- NOTE | 2019-07-23 11:13 | PDOC DISCHARGE SUMMARY ---
General - Admit/Disc Date/PCP Admission Date/Primary Care Provider: 07/18/19 14:16 Discharge Date: 07/23/19 - Discharge Diagnosis Final Diagnosis: small bowel obstruction - Assessment Summary: This is a 43-year-old male who was admitted with abdominal pain and distention. Differential included gastroenteritis versus small bowel obstruction. Small bowel obstruction was thought less likely due to his lack of previous surgeries. During his hospital stay, the patient failed to improve with conservative therapy. A small bowel series was obtained, which showed a near complete bowel obstruction. The patient was then taken to surgery, where a laparoscopic lysis of adhesions was performed. After surgery, the patient began tolerating a diet, passing flatus, and having bowel movements. By 07/23/2019, the patient was feeling well, eating, ambulating, and had reached maximal hospital benefit. The patient at this time is fit for discharge. - Additional Information Resuscitation Status: Full Code Discharge Diet: As Tolerated Discharge Activity: No Lifting Over 10 Pounds, No Lifting/Push/Pulling Prescriptions: Hydrocodone/Acetaminophen [Berne 10-325 mg Tablet] 1 tab PO Q6HP PRN #10 tablet PRN Reason: For Pain Lisinopril [Prinivil 10 mg Tablet] 10 mg PO DAILY #30 tablet Home Medications: Hydrocodone/Acetaminophen [Berne 10-325 mg Tablet] 1 tab PO Q6HP PRN #10 tablet 07/23/19 Lisinopril [Prinivil 10 mg Tablet] 10 mg PO DAILY #30 tablet 07/23/19 Additional Information: Discharge home. Diet as tolerated. Activity: No lifting greater than 10 pounds x 2 weeks. Follow-up with [facility] in 7 to 10 days. Okay to return to work on light duty. Okay to shower. Berne 10/325 mg p.o. every 6 hours as needed for pain. Ibuprofen 800 mg [id number] p.o. 3 times daily with meals. Stool softeners daily, while taking the hydrocodone. History of Present Illiness History of Present Illness: TEJ AMARAL is a 43 year old male who awoke in the middle of the night with burning abdominal pain. The pain did not go away, and he presented to the emergency room for evaluation. The patient reports nausea without vomiting. His abdominal pain is 8 out of 10. It is located all across his abdomen, without a specific point of tenderness. Nothing makes it better or worse. He denies melena, hematochezia, diarrhea, constipation. His last bowel movement was yesterday. He passed flatus before presenting to the emergency department. The patient denies chest pain, shortness of breath, fevers, chills, dizziness, blurry vision, orthostasis, fatigue, malaise, headache. Physical Exam Vital Signs: Temp Pulse Resp BP Pulse Ox 98.4 F 72 18 140/85 H 97 07/23/19 08:07 07/23/19 08:07 07/23/19 08:07 07/23/19 08:07 07/23/19 08:07 Intake & Output 07/22/19 07/23/19 07/24/19 06:59 06:59 06:59 Intake Total 2212 5898 Output Total 1150 350 Balance 1062 5548 Weight 83.9 kg 83 kg Results Laboratory Results: WBC 4.0 10^3/uL (4.0-10.5) 07/17/19 05:40 RBC 5.18 10^6/uL (4.35-5.55) 07/17/19 05:40 Hgb 14.5 g/dL (13.5-17.0) 07/17/19 05:40 Hct 42.0 % (37.9-51.0) 07/17/19 05:40 MCV 81 fl (80-97) 07/17/19 05:40 MCH 27.9 pg (27.0-33.4) 07/17/19 05:40 MCHC 34.4 g/dL (32.0-36.0) 07/17/19 05:40 RDW 13.8 % (11.5-14.0) 07/17/19 05:40 Plt Count 252 10^3/uL (150-450) 07/17/19 05:40 Lymph % (Auto) 33.2 % (13-45) 07/17/19 05:40 [place] % (Auto) 10.9 % (3-13) 07/17/19 05:40 Eos % (Auto) 0.1 % (0-6) 07/17/19 05:40 Baso % (Auto) 0.5 % (0-2) 07/17/19 05:40 Absolute Neuts (auto) 2.2 10^3/uL (1.7-8.2) 07/17/19 05:40 Absolute Lymphs (auto) 1.3 10^3/uL (0.5-4.7) 07/17/19 05:40 Absolute Monos (auto) 0.4 10^3/uL (0.1-1.4) 07/17/19 05:40 Absolute Eos (auto) 0.0 10^3/uL (0.0-0.6) 07/17/19 05:40 Absolute Basos (auto) 0.0 10^3/uL (0.0-0.2) 07/17/19 05:40 Seg Neutrophils % 55.3 % (42-78) 07/17/19 05:40 Sodium 132.8 mmol/L (137-145) L 07/19/19 04:54 Potassium 4.6 mmol/L (3.6-5.0) 07/19/19 04:54 Chloride 104 mmol/L (98-107) 07/19/19 04:54 Carbon Dioxide 24 mmol/L (22-30) 07/19/19 04:54 Anion Gap 5 (5-19) 07/19/19 04:54 BUN 11 mg/dL (7-20) 07/19/19 04:54 Creatinine 0.70 mg/dL (0.52-1.25) 07/19/19 04:54 Est GFR ( Amer) > 60 (>60) 07/19/19 04:54 Est GFR (MDRD) Non-Af > 60 (>60) 07/19/19 04:54 Glucose 115 mg/dL (75-110) H 07/19/19 04:54 Calcium 8.5 mg/dL (8.4-10.2) 07/19/19 04:54 Total Bilirubin 0.6 mg/dL (0.2-1.3) 07/16/19 03:01 Direct Bilirubin 0.0 mg/dL (0.0-0.4) 07/16/19 03:01 Neonat Total Bilirubin Not Reportable 07/16/19 03:01 Neonat Direct Bilirubin Not Reportable 07/16/19 03:01 Neonat Indirect Bili Not Reportable 07/16/19 03:01 AST 28 U/L (17-59) 07/16/19 03:01 ALT 27 U/L (<50) 07/16/19 03:01 Alkaline Phosphatase 92 U/L (38-126) 07/16/19 03:01 Total Protein 7.9 g/dL (6.3-8.2) 07/16/19 03:01 Albumin 4.7 g/dL (3.5-5.0) 07/16/19 03:01 Lipase 16.2 U/L (23-300) L 07/16/19 03:01 Urine Color YELLOW 07/16/19 03:01 Urine Appearance CLEAR 07/16/19 03:01 Urine pH 5.0 (5.0-9.0) 07/16/19 03:01 Ur Specific [place] 1.031 07/16/19 03:01 Urine Protein 30 mg/dL (NEGATIVE) H 07/16/19 03:01 Urine Glucose (UA) NEGATIVE mg/dL (NEGATIVE) 07/16/19 03:01 Urine Ketones TRACE mg/dL (NEGATIVE) H 07/16/19 03:01 Urine Blood NEGATIVE (NEGATIVE) 07/16/19 03:01 Urine Nitrite NEGATIVE (NEGATIVE) 07/16/19 03:01 Urine Bilirubin NEGATIVE (NEGATIVE) 07/16/19 03:01 Urine Urobilinogen NEGATIVE mg/dL (<2.0) 07/16/19 03:01 Ur Leukocyte Esterase NEGATIVE (NEGATIVE) 07/16/19 03:01 Urine WBC (Auto) 1 /HPF 07/16/19 03:01 Urine RBC (Auto) 3 /HPF 07/16/19 03:01 Urine Mucus (Auto) MOD /LPF 07/16/19 03:01 Urine Ascorbic Acid 20 (NEGATIVE) H 07/16/19 03:01 Impressions: Abdomen/Pelvis CT 07/16/19 04:12 IMPRESSION: Moderate grade small bowel obstruction. Focal transition at the mid abdomen, image 57, series 3. Immediate Surgical referral advised. KUB X-Ray 07/17/19 06:00 IMPRESSION: DIFFUSE SMALL BOWEL DILATION. NASOGASTRIC TUBE WITH THE TIP IN THE STOMACH. KUB X-Ray 07/18/19 09:14 IMPRESSION: CONTINUED DIFFUSE SMALL BOWEL DILATION. NO SIGNIFICANT CHANGE. KUB X-Ray 07/19/19 00:00 IMPRESSION: Satisfactory placement of nasogastric tube. Small Bowel X-Ray 07/19/19 09:28 IMPRESSION: Delayed transit, consistent with small bowel obstruction. On the 3.5 hour image, there is a small bowel tapering in the central abdomen suspicious for transition point, in the ileum.
[2019-07-23] MEDS: HYDRALAZINE HCL INJ/PF 20 MG/1 ML SDV IV PRN (13:47)
== END 2019-07-23 14:15 | disposition home or self-care (01) | DRG 337 ==
LOC: ER 01:43 → EH 07:44 → 4N 08:44 → OBSVTOIN 07-18 14:16
PROVIDERS: ADMIT Surgery; ATTEND Surgery
PROC: 0DNB4ZZ Release Ileum, Percutaneous Endoscopic Approach (ICD-10-PCS; principal; 2019-07-20 09:30)
DX: K56.51 Intestinal adhesions [bands], with partial obstruction (principal); I10 Essential (primary) hypertension; F17.210 Nicotine dependence, cigarettes, uncomplicated
CPT/HCPCS: 36415; 74018; 74177; 74250; 790; 80048; 80053; 81001; 83690; 85025; 96361; 96374; 96375; 99285; G0378; J0360; J0690; J1100; J1170; J1885; J2250; J2270; J2370; J2405; J2550; J2704; J2710; J3010; J3480; J3490; J7120; J7121; S0028